=== PATIENT | male | born 1945 | race Asian ===

== ENCOUNTER → 2023-10-19 | Outpatient (CLI) | payer MEDICARE ==
[~2023-10-19] VITALS: Ht 172.7 cm; Wt 82.0 kg
[~2023-10-19] MED LIST: ALBU18HF12 IH; BUDE0.5A NEB; CHOL500013 PO; CLOP75TA60 PO; CYAN250014 PO; DIPH-1243 PO; FLUT16SP NASAL; FLUT1BLS10 IH; IPRA3AMP24 IH; MONT-35 PO; OMEG1CAP83 PO; PROM473S4 PO; ROSU20TA73 PO; TADA5TAB PO; TAMS0.4C94 PO; TRIA15CR49 TP; ZINC220T4 PO
[2023-10-19 11:51] VITALS: BP 118/71; PULSE 91; RESP 18; TEMP 98; O2SAT 98
== END | disposition home or self-care (01) ==
LOC: SRCNTR 11:23
PROVIDERS: ATTEND Internal Medicine Pulmonary Disease
DX: R05.3 Chronic cough (principal); J45.901 Unspecified asthma with (acute) exacerbation; K21.9 Gastro-esophageal reflux disease without esophagitis; G45.9 Transient cerebral ischemic attack, unspecified; G47.33 Obstructive sleep apnea (adult) (pediatric); Z79.899 Other long term (current) drug therapy; Z82.49 Family history of ischemic heart disease and other diseases of the circulatory system; Z90.49 Acquired absence of other specified parts of digestive tract; Z98.890 Other specified postprocedural states; Z95.0 Presence of cardiac pacemaker; Z79.02 Long term (current) use of antithrombotics/antiplatelets
CPT/HCPCS: G0463; Z7500

== ENCOUNTER → 2023-11-25 | Outpatient (CLI) | payer MEDICARE ==
[~2023-11-25] VITALS: Ht 172.7 cm; Wt 81.0 kg
[2023-11-25 11:49] VITALS: BP 116/66; PULSE 68; RESP 20; TEMP 98; O2SAT 98
== END | disposition home or self-care (01) ==
LOC: SRCNTR 10:44
PROVIDERS: ATTEND Internal Medicine Pulmonary Disease
DX: G47.33 Obstructive sleep apnea (adult) (pediatric) (principal); R05.9 Cough, unspecified; G45.9 Transient cerebral ischemic attack, unspecified; K21.9 Gastro-esophageal reflux disease without esophagitis; Z79.899 Other long term (current) drug therapy; Z88.8 Allergy status to other drugs, medicaments and biological substances
CPT/HCPCS: G0463; Z7500